=== PATIENT | male | born 2000 | race African-American/Black ===

== ENCOUNTER 2019-08-28 14:14 | Emergency (ER) | payer OTHER ==
[2019-08-28 14:19] VITALS: BP 129/83; PULSE 96; TEMP 98; BMI 18.6
--- NOTE | 2019-08-28 16:00 | PDOC ---
History of Present Illness - General Chief Complaint: Pain Stated Complaint: SENT BY PCP/RT LEG PAIN Time Seen by Provider: 08/28/19 14:22 History Source: Patient Exam Limitations: No Limitations - History of Present Illness Initial Comments: 08/28/19 16:04 HISTORY OF PRESENT ILLNESS: This a 18-year-old male denies medical history of presents to the emergency department for evaluation of bilateral leg pain. Patient was seen and evaluated in urgent care center had negative x-rays at that time but they are unable to perform Dopplers to rule out DVT. Patient reports he goes to [employer] in [facility] and is to take a 4-1/2-hour bus ride. Otherwise no other travel. No recent travel or sick contacts. PAST MEDICAL HISTORY: Denies past medical history SURGICAL HISTORY: Orchiopexy ALLERGIES: No known drug allergies REVIEW OF SYSTEMS General/Constitutional: Denies fever or chills. Denies weakness, weight change. HEENT: Denies change in vision. Denies ear pain or discharge. Denies sore throat. Cardiovascular: Denies chest pain or shortness of breath. Respiratory: Denies cough, wheezing, or hemoptysis. Gastrointestinal: Denies nausea, vomiting, diarrhea or constipation. Denies rectal bleeding. Genitourinary: Denies dysuria, frequency, or change in urination. Musculoskeletal: See HPI Skin and breasts: Denies rash or easy bruising. Neurologic: Denies headache, vertigo, loss of consciousness, or loss of sensation. Psychiatric: Denies depression or anxiety. Endocrine: Denies increased thirst. Denies abnormal weight change. Hematologic/Lymphatic: Denies anemia, easy bleeding, or history of blood clots. Allergic/Immunologic: Denies hives or skin allergy. Denies latex allergy. PHYSICAL EXAM General Appearance: Well-appearing, appropriately dressed. No apparent distress , no intoxication. Respiratory/Chest: Lungs CTAB. No shortness of breath, chest tenderness, respiratory distress, accessory muscle use. No crackles, rales, rhonchi, stridor , wheezing, dullness Cardiovascular: RRR. S1, S2. No JVD, murmur, bradycardia, tachycardia. Musculoskeletal/Extremities: Normal inspection. FROM of all extremities, normal capillary refill. Pelvis Stable. No CVA tenderness. No tenderness to extremities, pedal edema, swelling, erythema or deformity. No calf tenderness, masses or cords present. Negative Homans sign. Integumentary: Appropriate color, dry, warm. No cyanosis, erythema, jaundice or rash Neurologic: employment specialist II-XII intact. Fully oriented, alert. Appropriate mood/affect. Motor strength 5/5. No appreciable EOM palsy, facial droop or sensory deficit. Past History - Past Medical History Allergies/Adverse Reactions: Allergies Allergy/AdvReac Type Severity Reaction Status Date / Time No Known Allergies Allergy Verified 08/28/19 14:20 COPD: No - Psycho Social/Smoking Cessation Hx Smoking History: Never smoked *Physical Exam - Vital Signs Last Vital Signs Temp Pulse Resp BP Pulse Ox 98 F 96 H 18 129/83 99 08/28/19 14:16 08/28/19 14:16 08/28/19 14:16 08/28/19 14:16 08/28/19 14:16 ED Treatment Course - RADIOLOGY Radiology Studies Ordered: Category Date Time Status DUPLEX VASCUL US-2LEGS [US] Stat Ultrasound 08/28/19 14:46 Completed Medical Decision Making - Medical Decision Making 08/28/19 15:36 A/P: 18-year-old male with bilateral lower extremity pain sent by urgent care for Dopplers to rule out DVT Bilateral duplex Dopplers of the lower extremities Doppler as read by Dr. Morris: No evidence of deep vein thrombosis. This patient has an appointment with his PMD on 09/02 I feel it is safe to discharge the patient home for continued follow-up. I discussed the physical exam findings, ancillary test results and final diagnoses with the patient. I answered all of the patient's questions. The patient was satisfied with the care received and felt comfortable with the discharge plan and treatment plan. The patient will call their primary care physician within 24 hours to arrange follow-up and will return to the Emergency Department with any new, persistent or worsening symptoms. Discharge - Discharge Information Problems reviewed: Yes Clinical Impression/Diagnosis: Bilateral leg pain Condition: Stable Disposition: HOME - Admission No - Follow up/Referral - Patient Discharge Instructions Additional Instructions: Take Tylenol or Motrin as needed for pain. Follow human resources director's instructions for appropriate dosage. Apply warm moist heat to both legs as needed. Keep your appointment with your primary doctor on 09 02 as previously scheduled. Return to the emergency department for any new or worsening symptoms. - Post Discharge Activity
== END 2019-08-28 15:45 | disposition home or self-care (01) ==
LOC: JERFT 14:14
DX: M79.604 Pain in right leg (principal); M79.605 Pain in left leg
CPT/HCPCS: 93970-TC; 99282-25